=== PATIENT | male | born 1955 | race American Indian/Alaskan Native ===

== ENCOUNTER 2017-06-30 12:38 | Emergency (ER) | payer MEDICARE, OTHER ==
[~2017-06-30] VITALS: Ht 182.9 cm; Wt 120.0 kg
[~2017-06-30 12:38] MED LIST: ATEN-102 PO; DIAZ10TA PO; EZET10 PO; FLUO40CA PO; GABA300C3 PO; HYZA100T2 PO; LEVO75TA3 PO; MORP1INJ45 PO
[2017-06-30 12:40] VITALS: BP 104/71; PULSE 70; RESP 13; TEMP 99.2; O2SAT 96
[2017-06-30] MEDS ORDERED: KETOROLAC TROMETHAMINE 60 MG/2 ML (IM) VIAL IM ONE (14:45)
--- NOTE | 2017-06-30 15:17 | PD ---
HPI Chief Complaint: Fall Time Seen by Provider: 14:35 Travel History International Travel<30 days: No Contact w/Intl Traveler<30days: No Traveled to known affect area: No History of Present Illness HPI Patient is a 62 year old male who comes in after he tripped and fell last night. He says he fell directly onto his knees. He complains of pain to his knees, his left ankle, wrists, and back. He denies hitting his head or any LOC. He takes 30mg Morphine three times a day at home for chronic pain. PFS Past Medical History High Cholesterol: Yes Hypertension: Yes Medical other: Yes (chronic pain ) Tetanus Vaccination: Unknown Past Surgical History Other Surgery: Yes (divated septum, right hand ) Social History Alcohol Use: Yes (occ) Tobacco Use: No Substance Use: No Allergies-Medications (Allergen,Severity, Reaction): Coded Allergies: No Known Allergies (Unverified , 06/30/17) Reported Meds & Prescriptions Reported Meds & Active Scripts Active Reported Gabapentin Unknown Strength Cap Unknown Dose PO BID Fluoxetine (Fluoxetine HCl) 40 Mg Cap 40 Mg PO DAILY Morphine Sulfate Ir 15 mg (Morphine Sulfate) 15 Mg Tab 15 Mg PO Q8HR PRN Diazepam 10 mg (Diazepam) 10 Mg Tab 1 Tab PO DAILY Levothyroxine 75 mcg (Levothyroxine Sodium) 75 Mcg Tab 75 Mcg PO DAILY Hyzaar 100-12.5 (Losartan Potassium-Hct 100-12.5) 100 Mg/12.5 Mg Tab 1 Tab PO DAILY Atenolol 50 Mg Tab 50 Mg PO DAILY Zetia (Ezetimibe) 10 Mg Tab 10 Mg PO DAILY Review of Systems Except as stated in HPI: all other systems reviewed are Neg General / Constitutional: No: Fever, Chills Eyes: No: Blurred Vision HENT: No: Headaches, Lightheadedness Cardiovascular: No: Chest Pain or Discomfort, Palpitations Respiratory: No: Shortness of Breath Gastrointestinal: No: Nausea, Vomiting Musculoskeletal: Positive: Edema, Pain Skin: Positive Other (abrasion), No Rash, No Change in Pigmentation Neurologic: No: Weakness, Dizziness, Syncope Physical Exam Narrative GENERAL: Awake and alert, in no acute distress. SKIN: Focused skin assessment warm/dry. Abrasion to distal portion of the left patella. HEAD: Atraumatic. Normocephalic. EYES: Pupils equal and round. No scleral icterus. EOMI. ENT: Mucous membranes pink and moist. NECK: Trachea midline. No JVD. No cervical spine tenderness. CARDIOVASCULAR: Regular rate and rhythm. No murmur appreciated. RESPIRATORY: No accessory muscle use. Clear to auscultation. Breath sounds equal bilaterally. GASTROINTESTINAL: Abdomen soft, non-tender, nondistended. MUSCULOSKELETAL: No obvious deformities. No clubbing. No cyanosis. Pain with flexion of both knees. Tender to palpation of the thoracic spine. Edema of the left ankle. Pulses intact. NEUROLOGICAL: Awake and alert. No obvious cranial nerve deficits. Motor grossly within normal limits. Normal speech. PSYCHIATRIC: Appropriate mood and affect; insight and judgment normal. Data Data Last Documented VS Vital Signs Date Time Temp Pulse Resp B/P (MAP) Pulse Ox O2 Delivery O2 Flow Rate FiO2 06/30/17 14:37 16 98 Room Air 06/30/17 12:40 99.2 70 104/71 (82) Orders Orders Knee, Complete (4vws) (06/30/17 ) Knee, Complete (4vws) (06/30/17 ) Ankle, Complete ([id number]) (06/30/17 ) Spine, Thoracic-Ap/Lat/Sw(3vw) (06/30/17 ) Spine, Lumbar Comp W/Obliq (06/30/17 ) Ketorolac Inj (Toradol Inj) (06/30/17 14:45) Wrist, Complete ([id number]) (06/30/17 ) Wrist, Complete ([id number]) (06/30/17 ) Pelvis, Ap Only (Routine) (06/30/17 ) MDM Medical Decision Making Medical Screen Exam Complete: Yes Emergency Medical Condition: Yes Medical Record Reviewed: Yes Differential Diagnosis knee fracture vs ankle fracture vs muscle strain Narrative Course Patient is a 62 year old male who comes in complaining of pain after he tripped and fell yesterday. Exam shows pain with flexion of both knees. Given Toradol. Last 24 hours Impressions Wrist X-Ray 06/30/17 0000 Signed Impressions: Service Date/Time: Friday, June 30, 2017 15:33 - CONCLUSION: Chronic worsening arthritic changes and scapholunate separation. No definite fracture Michel Champion MD Wrist X-Ray 06/30/17 0000 Signed Impressions: Service Date/Time: Friday, June 30, 2017 15:29 - CONCLUSION: No acute disease. Anderson Sheppard MD Thoracic Spine X-Ray 06/30/17 Signed Impressions: Service Date/Time: Friday, June 30, 2017 15:41 - CONCLUSION: Multilevel degenerative changes. Anderson Sheppard MD Pelvis X-Ray 06/30/17 Signed Impressions: Service Date/Time: Friday, June 30, 2017 15:39 - CONCLUSION: No acute disease. Anderson Sheppard MD Lumbar Spine X-Ray 06/30/17 Signed Impressions: Service Date/Time: Friday, June 30, 2017 15:40 - CONCLUSION: Degenerative changes without fracture or listhesis. Anderson Sheppard MD Knee X-Ray 06/30/17 Signed Impressions: Service Date/Time: Friday, June 30, 2017 15:09 - CONCLUSION: Degenerative changes and joint effusion. No definite fracture Michel Champion MD Knee X-Ray 06/30/17 Signed Impressions: Service Date/Time: Friday, June 30, 2017 15:09 - CONCLUSION: Degenerative changes. No acute bony injury Michel Champion MD Ankle X-Ray 06/30/17 Signed Impressions: Service Date/Time: Friday, June 30, 2017 15:07 - CONCLUSION: No acute bony injury Michel Champion MD Patient advised to stretch and move often to avoid stiffness. He has pain medicine at home to take if needed. He is advised to be cautious with the amount of Morphine he takes. Advised to follow up with his doctors. Advised to return to the ED as needed for any worsening symptoms. Diagnosis Primary Impression: Musculoskeletal pain Patient Instructions: General Instructions, Musculoskeletal Pain (ED) Additional Instructions: Make sure you stretch and move often. Follow up with your doctors. Return to the ED as needed for any worsening symptoms. Disposition: 01 DISCHARGE HOME Condition: Stable Alisha Zhu MD Jun 30, 2017 15:17
--- NOTE | 2017-06-30 16:06 | RADRPT ---
EXAM DATE/TIME: 06/30/2017 15:33 [facility] COMPARISON: WRIST RIGHT LIMITED(AP & LAT), February 01, 2016, 11:43. INDICATIONS : Pain from fall forward on outstretched hands. MEDICAL HISTORY : None. SURGICAL HISTORY : None. ENCOUNTER: Initial ACUITY: 1 day PAIN SCORE: 5/10 LOCATION: Right wrist. FINDINGS: There is severe arthritic change in the wrist with complete or near-complete joint space loss in the radiocarpal joint. Is prominent widening of the scapholunate interval which appears worse than on pre vious exam. There is no definite evidence of displaced fracture. CONCLUSION: Chronic worsening arthritic changes and scapholunate separation. No definite fracture Michel Champion MD on June 30, 2017 at 16:03 Board Certified Radiologist. This report was verified electronically.
--- NOTE | 2017-06-30 16:07 | RADRPT ---
EXAM DATE/TIME: 06/30/2017 15:07 [facility] COMPARISON: No previous studies available for comparison. INDICATIONS : Pain from fall forward on outstretched hands. MEDICAL HISTORY : None. SURGICAL HISTORY : None. ENCOUNTER: Initial ACUITY: 1 day PAIN SCORE: 5/10 LOCATION: Left wrist. FINDINGS: There is no evidence of fracture or dislocation. There are arthritic changes in the ankle and hindfoo t. Prominent plantar heel spur and some ossification at the Achilles tendon insertion. CONCLUSION: No acute bony injury Michel Champion MD on June 30, 2017 at 16:05 Board Certified Radiologist. This report was verified electronically.
--- NOTE | 2017-06-30 16:08 | RADRPT ---
EXAM DATE/TIME: 06/30/2017 15:09 [facility] COMPARISON: No previous studies available for comparison. INDICATIONS : Pain from fall forward on outstretched hands. MEDICAL HISTORY : None. SURGICAL HISTORY : None. ENCOUNTER: Initial ACUITY: 1 day PAIN SCORE: 5/10 LOCATION: Left knee. FINDINGS: There is severe arthritic change with severe medial compartment joint space narrowing and tricompartm ental osteophyte formation. There is no definite evidence of joint effusion or fracture. Mineralizati on is normal. CONCLUSION: Degenerative changes. No acute bony injury Michel Champion MD on June 30, 2017 at 16:06 Board Certified Radiologist. This report was verified electronically.
--- NOTE | 2017-06-30 16:09 | RADRPT ---
EXAM DATE/TIME: 06/30/2017 15:09 [facility] COMPARISON: No previous studies available for comparison. INDICATIONS : Pain from fall forward on outstretched hands. MEDICAL HISTORY : None. SURGICAL HISTORY : None. ENCOUNTER: Initial ACUITY: 1 day PAIN SCORE: 5/10 LOCATION: Left knee. FINDINGS: There is a moderate suprapatellar effusion. No definite fracture or dislocation. Moderate arthritic c hanges present with medial compartment joint space narrowing and tricompartmental osteophytes. CONCLUSION: Degenerative changes and joint effusion. No definite fracture Michel Champion MD on June 30, 2017 at 16:07 Board Certified Radiologist. This report was verified electronically.
--- NOTE | 2017-06-30 16:11 | RADRPT ---
EXAM DATE/TIME: 06/30/2017 15:39 [facility] COMPARISON: No previous studies available for comparison. INDICATIONS : Pain from fall forward on outstretched hands. MEDICAL HISTORY : None. SURGICAL HISTORY : None. ENCOUNTER: Initial ACUITY: 1 day PAIN SCORE: 5/10 LOCATION: Bilateral pelvis FINDINGS: A single frontal view of the pelvis demonstrates no evidence of fracture. The bony pelvic ring is in tact. Bony mineralization is normal. The soft tissues are intact. CONCLUSION: No acute disease. Anderson Sheppard MD on June 30, 2017 at 16:09 Board Certified Radiologist. This report was verified electronically.
--- NOTE | 2017-06-30 16:11 | RADRPT ---
EXAM DATE/TIME: 06/30/2017 15:40 [facility] COMPARISON: No previous studies available for comparison. INDICATIONS : Pain from fall forward on outstretched hands. MEDICAL HISTORY : None. SURGICAL HISTORY : None. ENCOUNTER: Initial ACUITY: 1 day PAIN SCORE: 5/10 LOCATION: Lower back. FINDINGS: Normal alignment. Severe disc space narrowing L4-5 and L5-S1 with vacuum disc phenomenon, and endplat e sclerosis. Prominent multilevel osteophytosis. Schmorl node at the inferior endplate of L1. Moderat e facet hypertrophic changes. No compression deformities. Aortic and iliac artery calcifications. CONCLUSION: Degenerative changes without fracture or listhesis. Anderson Sheppard MD on June 30, 2017 at 16:10 Board Certified Radiologist. This report was verified electronically.
--- NOTE | 2017-06-30 16:12 | RADRPT ---
EXAM DATE/TIME: 06/30/2017 15:29 [facility] COMPARISON: No previous studies available for comparison. INDICATIONS : Pain from fall forward on outstretched hands. MEDICAL HISTORY : None. SURGICAL HISTORY : None. ENCOUNTER: Initial ACUITY: 1 day PAIN SCORE: 5/10 LOCATION: Left wrist. FINDINGS: Three view examination of the left wrist demonstrates no soft tissue swelling, dislocation, or fractu re. The carpal bones are in normal alignment. The joint spaces are maintained. Bony mineralization is normal. CONCLUSION: No acute disease. Anderson Sheppard MD on June 30, 2017 at 16:11 Board Certified Radiologist. This report was verified electronically.
--- NOTE | 2017-06-30 16:12 | RADRPT ---
EXAM DATE/TIME: 06/30/2017 15:41 [facility] COMPARISON: No previous studies available for comparison. INDICATIONS : Pain from fall forward on outstretched hands. MEDICAL HISTORY : None. SURGICAL HISTORY : None. ENCOUNTER: Initial ACUITY: 1 day PAIN SCORE: 5/10 LOCATION: Upper back. FINDINGS: There is normal alignment of the thoracic vertebral bodies. Vertebral body height is maintained. No evidence of fracture or subluxation. Pedicles are intact at all levels. The paravertebral reflecti ons are not thickened. Multilevel osteophyte formation is seen without fracture or listhesis. CONCLUSION: Multilevel degenerative changes. Anderson Sheppard MD on June 30, 2017 at 16:10 Board Certified Radiologist. This report was verified electronically.
== END 2017-06-30 16:56 | disposition home or self-care (01) ==
LOC: NEPD 12:38
DX: M79.1 Myalgia (principal); W01.0XXA Fall on same level from slipping, tripping and stumbling without subsequent striking against object, initial encounter
CPT/HCPCS: 72072; 72110; 72170; 73110; 73564; 73610; 96372; 99284; J1885

== ENCOUNTER 2018-08-19 08:03 | Inpatient (IN) ==
[2018-08-19] MEDS ORDERED: Chlorhexidine Gluconate 2% 1 Pack (2 Cloths) TOPICAL ONE (08:33)
[2018-08-19] MEDS ORDERED: Metoprolol Tartrate 25 MG Tablet PO ONE (08:33)
[2018-08-19] MEDS ORDERED: Chlorhexidine 4% Topical 120 APPLIC/120 ML Bottle TOPICAL SCH (08:45)
[2018-08-19] MEDS ORDERED: ceFAZolin 2 GM Premix Inj 2 GM/50 ML PIGGYBACK IV.SIG SCH (09:00)
[2018-08-19] MEDS ORDERED: Sodium Chlor 0.9% Inj 60 ML, Bupivacaine Liposo PF 1.3% Inj 20 ML, Bupivacaine/Epi PF 0... P-ARTICULR SCH ×3 (09:00)
[2018-08-19] MEDS ORDERED: Vancomycin Inj 1,000 MG in Sodium Chlor 0.9% Inj 250 ML IV.SIG SCH (09:00)
[2018-08-19] MEDS ORDERED: Sodium Chlor 0.9% Inj 500 ML IV.SIG SCH (09:00)
[2018-08-19] MEDS ORDERED: Sugammadex Inj 200 MG/2 ML Vial IV.PUSH ONE (13:05)
[2018-08-19] MEDS ORDERED: Morphine Inj 4 MG/ML Vial IV.PUSH PRN (14:13)
[2018-08-19] MEDS ORDERED: Post-op Orders (for Pharmacy) OTHER STA (14:13)
[2018-08-19] MEDS ORDERED: Bisacodyl 10 MG Supp RECTAL PRN (14:13)
--- NOTE | 2018-08-19 14:19 | P.OP ---
- Preoperative Diagnosis (1) Osteoarthritis of right knee - Postoperative Diagnosis (1) Osteoarthritis of right knee Date of procedure: 08/19/18 Procedure: Right total knee arthroplasty Anesthesia: GETA Surgeon: Cy Mack MD Beef Boner: Amanda Mccauley PA-C Operation and Findings: EBL: 100 cc INDICATION: This patient presents with long-standing arthritis of the knee. Attachment record documents conservative measures. The patient now presents for surgical treatment. NOTE: Amanda Mccauley PA-C was present for the entire surgical procedure as my training and development assistant. In my medical opinion her skill and care was necessary for proper management of this patient. TOURNIQUET TIME: 85 minutes COMPANY: [employer] FEMUR: Size 10, posterior stabilized, cemented TIBIA: Size 9, fixed-bearing, cemented PATELLA: 38 mm POLYETHYLENE INSERT: 11 mm, posterior stabilized PROCEDURE: This patient was brought the operating room and anesthetized in the supine position. The patient was positioned supine on the table. The tourniquet was placed about the thigh, and the leg was scrubbed with alcohol followed by Hibiclens followed by ChloraPrep and draped sterilely. A timeout was done, and antibiotics were given. After exsanguination the tourniquet was inflated to 250 mmHg. An anterior incision was made and a median parapatellar arthrotomy was performed. The patella was released laterally and subluxed allowing freehand cut of the patella which was then sized. A metal cap was placed over the exposed patellar surface for protection. A airplane pilot crop dusting hole was placed in the distal femur allowing a 6 valgus cut removing 11 mm from the distal femur. Anterior posterior and chamfer cuts were made. Because of the patient's very large size, we downsized to a size 10, the largest size. We translated the femoral component anteriorly 1.5 mm. The distal femur was resected at 11 instead of 9, allowing the joint line to be translated by 2 mm cephalad. The posterior stabilize osteotomy was made. The attention was directed to the tibia. Retractors were positioned. The external alignment guide was used allowing the lateral tibia to be used as referencing guide and cut utilizing an oscillating saw taking care to avoid any injury to the surrounding soft tissues. This was sized properly. Trial reduction showed that the insert fit nicely. The patient had range of motion extension 0 flexion 120. A medial release was not necessary. The bony surfaces prepared. On the back table 2 packets of methylmethacrylate were mixed. The components were cemented. Excess cement was removed. The tourniquet let down and hemostasis was controlled. The final plastic insert was inserted. Range of motion was the same as previously noted. The arthrotomy was repaired with interrupted #1 Vicryl suture, subcutaneous tissue 2-0 Vicryl suture and skin with metallic cal A sterile dressing was applied. Sponge counts, needle counts and instrument counts were all correct. The patient tolerated procedure well and was taken to recovery in satisfactory condition. FINDINGS: The patient had severe osteoarthritis especially of the medial compartment and retropatellar region. Bony erosion was seen in the medial compartment. The final alignment and stability appear to be excellent. There is no complication that was appreciated.
--- NOTE | 2018-08-19 14:21 | P.DCO ---
- Physical Therapy Physical Therapy: Gait training (3 times per week for 2 weeks) Knee: Total knee, Protocol: Right, Full weight bearing Canvas Knee Splint: Other (At nighttime when in bed for 4 weeks) Right Lower Extremity Weight Bearing: Weight bearing as tolerated - Nursing RN days per week: 3 x week(s): 1 Dressing changes: Do not change dressing (Unless saturated. If saturated, one- time change with coverderm or [place]) - Certification Need for Home Health services: I have seen patient Anand Rosen on 08/19/18. My clinical findings support the need for the requested home health care services because: Homebound Certification: I certify that my clinical findings support that this patient is homebound because:
[2018-08-19] MEDS ORDERED: fentaNYL Citrate Inj 100 MCG/2 ML Ampul ONE (14:53)
[2018-08-19] MEDS ORDERED: *HYDROmorphone PF Inj 1 MG/ML Ampul PERIprocedural Use ONLY ONE (14:56)
--- NOTE | 2018-08-19 16:10 | XR ---
EXAM DATE: 08/19/2018 4:02 PM EST AGE/SEX: 63 years / Male INDICATIONS: Post op, right knee surgery. CLINICAL DATA: This is the patient's initial encounter. Patient reports that signs and symptoms have been present for 1 day and indicates a pain score of 0/10. MEDICAL/SURGICAL HISTORY: None. None. COMPARISON: [facility] [place], KNEE RIGHT COMPLETE (4VWS), 06/30/2017. . FINDINGS: Total knee arthroplasty is present. Hardware appears intact. Alignment is anatomic. Skin cal are present ventrally. CONCLUSION: Satisfactory appearance post right TKA Electronically signed by: Michel Champion MD 08/19/2018 4:09 PM EST
[2018-08-19] MEDS: ceFAZolin 1 GM Premix Inj 1 GM/50 ML FROZ.PIGGY IV.SIG SCH ×2 (17:49→22:30)
[2018-08-19] MEDS: Morphine Sulfate 30 MG SR Tablet PO SCH ×2 (17:50→22:27)
[2018-08-19] MEDS: Gabapentin 300 MG Capsule PO SCH (17:50)
[2018-08-19] MEDS: Pilocarpine HCl 5 MG Tablet PO SCH (17:59)
[2018-08-19] MEDS ORDERED: Montelukast 10 MG Tablet PO SCH (18:00)
[2018-08-19] MEDS: Senna/Docusate Sodium 8.6/50 MG Tablet PO SCH (21:18)
[2018-08-19] MEDS: Multivitamin/Minerals Therapeutic Tablet PO SCH (22:29)
[2018-08-20] MEDS ORDERED: Levothyroxine 75 MCG Tablet PO SCH (06:00)
[2018-08-20] MEDS: Morphine Sulfate 30 MG SR Tablet PO SCH ×2 (06:34→15:20)
[2018-08-20] MEDS: ceFAZolin 1 GM Premix Inj 1 GM/50 ML FROZ.PIGGY IV.SIG SCH (06:34)
[2018-08-20 06:58] LABS: Hematocrit 34.7 % (39.0-51.0); Hemoglobin 11.7 gm/dL (13.0-17.0)
[2018-08-20] MEDS ORDERED: Ezetimibe 10 MG Tablet PO SCH (09:00)
[2018-08-20] MEDS ORDERED: amLODIPine 5 MG Tablet PO SCH (09:00)
[2018-08-20] MEDS ORDERED: FLUoxetine 20 MG Capsule PO SCH (09:00)
[2018-08-20] MEDS ORDERED: Atenolol 50 MG Tablet PO SCH (09:00)
[2018-08-20] MEDS ORDERED: hydroCHLOROthiazide 25 MG Tablet PO SCH (09:00)
[2018-08-20] MEDS: Gabapentin 300 MG Capsule PO SCH ×2 (09:23→12:10)
[2018-08-20] MEDS: Pilocarpine HCl 5 MG Tablet PO SCH ×2 (09:23→12:11)
[2018-08-20] MEDS: Multivitamin/Minerals Therapeutic Tablet PO SCH (09:23)
[2018-08-20] MEDS: Senna/Docusate Sodium 8.6/50 MG Tablet PO SCH (09:24)
--- NOTE | 2018-08-20 16:57 | P.DS ---
Date of admission: 08/19/18 08:03 Primary care physician: Ruth Ojeda DO Attending physician on discharge: yC Mack Anticipated date of discharge: 08/21/18 Brief History from admission: Mr. Rosen has a multiyear history of bilateral knee pain, right greater than left. He underwent arthroscopic knee surgery on the left in the with moderate postoperative success. He pursued therapy, medications, topical analgesics and use of a gait aid with limited success. Surgical treatment was eventually recommended in the form of right total knee arthroplasty. The patient agreed and now presents for the above. DS: Diagnosis - Discharge Diagnosis (1) Osteoarthritis of right knee Status: Acute DS: Medications - Discharge Medications Prescriptions: aspirin 81 mg PO BID 30 Days #60 tab oxycodone-acetaminophen 1 tab PO Q4H PRN #42 tab PRN Reason: Acute Pain DS: Summary Hospital Course: Surgical treatment was performed on the day of admission without complication. He recovered well in PACU and was transferred to the orthopaedic floor. Pain was controlled with IV and oral medications. He was compliant with physical therapy and all total knee precautions. After 2 days he was found to be stable and discharged home with home health care. He was instructed to continue his therapy, to ice the operative limb and to pursue a high fiber diet for 5-7 days. He was given a prescription for Oxycodone but educated to return to his pain management physician for further pain control and instructed to take ASA 81mg BID for 30 days. - Time Spent with Patient Total time spent providing and/or coordinating discharge services: Greater than 30 minutes - Quality: VTE Deep Vein Thrombosis/Pulmonary Embolism Present on Admission: No Exam Vital signs: Vital Signs 08/19/18 17:29 08/19/18 19:50 08/20/18 00:55 Temperature 97.1 F L 98.6 F 97.7 F Pulse Rate 70 78 83 Respiratory Rate 18 16 16 Blood Pressure 132/65 120/75 120/56 L Pulse Oximetry 94 L 95 93 L 08/20/18 04:54 08/20/18 08:00 08/20/18 12:00 Temperature 98.2 F 97 F L 98.8 F Pulse Rate 74 76 87 Respiratory Rate 18 18 18 Blood Pressure 126/58 L 137/63 140/60 Pulse Oximetry 93 L 96 92 L Intake & Output 08/19/18 08/20/18 08/20/18 18:59 06:59 18:59 Intake Total 1000 / 1000 1240 / 1240 50 / 50 Output Total 100 / 100 Balance 900 / 900 1240 / 1240 50 / 50 Weight 130.6 kg Intake: IV 1000 / 1000 50 / 50 LR 1000 mL Inj 1,000 ML @ 80 900 / 900 mls/hr IV.CONT .[id number] [facility] Rx# :[id number] Ancef 1 GM Premix Inj 1 gm In 100 / 100 50 / 50 50 ml @ 100 mls/hr IV.SIG Q6H [facility] Rx#:[id number] Oral 240 / 240 Anesthesia Amount 1000 / 1000 Output: Estimated Blood Loss 100 / 100 Other: # Voids 1 Date of Last Bowel Movement 08/18/18 # Bowel Movements 0 Weight On Admission 130.6 kg Results Procedures completed during hospitalization: Right total knee arthroplasty Labs on day of discharge: Labs from last 24 hours 08/20/18 05:00 Hgb 11.7 L Hct 34.7 L - Impressions ITS Impressions Knee X-Ray 08/19/18 14:13 CONCLUSION: Satisfactory appearance post right TKA Discharge Plan - Discharge Disposition Patient Disposition: W/Home Health Service - Discharge Condition Condition: Good - Discharge Order Discharge Orders: Discharge Order (Routine); Ordered 08/20/18 Ordered By: Alisha Alvarado - Discharge Details Anticipated Discharge Date: 08/20/18 - Physicians Team Primary Care Provider: Ruth Ojeda Attending Provider: Cy Mack Other Providers: [facility] - Rxs /Orders / Referrals /Forms Prescriptions: New aspirin 81 mg Tablet,Chewable 81 mg PO BID 30 Days Qty: 60 RF: 0 oxycodone-acetaminophen 5-325 mg Tablet 1 tab PO Q4H PRN (Reason: Acute Pain) Qty: 42 RF: 0 Continue amlodipine 5 mg Tablet 5 mg PO DAILY atenolol 50 mg Tablet 50 mg PO DAILY atorvastatin 10 mg Tablet 10 mg PO DAILY cyclobenzaprine 10 mg Tablet 10 mg PO TID PRN (Reason: Spasms) diazepam 10 mg Tablet 10 mg PO HS ezetimibe [Zetia] 10 mg Tablet 10 mg PO DAILY fluoxetine 20 mg Capsule 20 mg PO DAILY gabapentin 300 mg Capsule 300 mg PO TID levothyroxine 75 mcg Capsule 75 mcg PO DAILY losartan-hydrochlorothiazide 100-12.5 mg Tablet 1 tab PO DAILY montelukast 10 mg Tablet 10 mg PO QPM morphine 30 mg Tablet Extended Release 30 mg PO Q8H pilocarpine HCl 5 mg Tablet 5 mg PO TID Ambulatory Orders / Order Sets / DME: Adjustable Commode 3-in-1 (1 each) (Routine) Location: Determined by Patient Ordered By: Cy Mack Walker With Front Wheels (1 each) (Routine) Location: Determined by Patient Ordered By: Cy Mack Referrals: Ruth Ojeda DO [Primary Care Provider] - See Instructions - Discharge Instructions Patient Printed Instructions: Oxycodone/Acetaminophen (By mouth), Laxative, Stool Softeners (By mouth), How to Choose and Use a Walker (GEN), How to Use a Bedside Commode (GEN), Precautions after Total Joint Replacement Surgery (DC), Ice Pack Application (DC), Fall Prevention (DC), DANIEL Hose (DC), Knee Immobilizer (ED), Knee Replacement (DC) Additional Instructions: PRESCRIPTIONS PROVIDED AT TIME OF DISCHARGE. CONTINUE TO USE STOOL SOFTENERS WHILE TAKING NARCOTICS. DO NOT CHANGE SURGICAL DRESSING. CONTINUE TO WEAR KNEE IMMOBILIZER AT NIGHT WHILE IN BED. REPORT ANY REDNESS, DRAINAGE, OR SWELLING AT THE SURGICAL SITE. - Post Discharge Care Plan Care Plan Goals: Discharge Care Plan Goals for RIGHT Total Knee Replacement You have undergone knee replacement surgery. Your doctor replaced your painful joint with an artificial joint to relieve pain and restore movement. Here are some goals to help you heal well. Directions to Meet your Goals: 1. Activity & Exercises: * Take pain medicine as directed by your doctor. * Sit in chairs with arms. The arms make it easier for you to stand up or sit down. * Dont sit for more than 30 to 45 minutes at one time. * Nap if you are tired, but dont stay in bed all day. * Sleep with a pillow under your ankle, not your knee. Be sure to change the position of your leg during the night. * Wear the support stockings you were given in the hospital as directed by your surgeon. 2. Prevent Falls/Injury: The elizalde to successful recovery is movement with walking and exercising your knee as directed by your doctor. * Arrange your household to keep the items you need handy. Keep everything else out of the way. * Remove items that may cause you to fall, such as throw rugs and electrical cords. * Use nonslip bath mats, grab bars, an elevated toilet seat, and a shower chair in your bathroom * Sit on a shower stool or chair when you shower to keep from falling. * Until your balance, flexibility, and strength improve, use a cane, crutches, a walker, handrails, or someone to help you. * Keep your hands free by using a backpack, indy pack, apron, or pockets to carry things * Walk up and down stairs with support. Try one step at a time. Use the railing if possible. * Dont drive until your doctor says its OK. * Dont drive while you are taking opioid pain medicine. 3. Precautions: * Prevent infection. Any infection will need to be treated immediately. Call your doctor right away if you think you might have an infection. * Tell your dentist that you have an artificial joint and take antibiotics as prescribed before any dental work. * Tell all your healthcare providers about your artificial joint before any medical procedure. * Maintain a healthy weight. Get help to lose any extra pounds. Added body weight puts stress on the knee. * Your medications may include blood-thinning medicine to prevent blood clots or antibiotics to prevent infection-prevent any falls or cuts 4. Incision Care: * Prevent infection by washing your hands often. If an infection occurs, it will need to be treated right away. * Call your doctor right away if you think you may have an infection. Symptoms include a fever or an incision that leaks white, green, or yellow fluid. * Don't soak your incision in water until your doctor says its OK. This means no hot tubs, bathtubs, or swimming pools. * Follow your doctor's instructions for changing the dressing. You can begin to shower postop day 5 BUT the dressing must be kept sealed and dry. If it gets wet you must begin daily dressing changes. * Dont rub the incision, or apply creams or lotions to it. * If you notice any redness or drainage around the bandage site, contact your surgeon's office immediately. 5. Follow-Up: Do Not miss your follow-up appointment. Keep up with all your appointments and yearly check ups When to call your doctor: Call your doctor right away if you have: Fever of 100.4F (38C) or higher, or as directed by your doctor Shaking chills Stiffness, or inability to move the knee Increased swelling in your leg Increased redness, tenderness, or swelling in or around the knee incision Drainage from the knee incision Increased knee pain Call 911: Call 911 right away if you have: Chest pain Shortness of breath Any pain or tenderness in your calf
--- NOTE | 2018-08-20 16:57 | P.PNOP ---
Subjective Interval history: He states he had moderate knee pain. His low back is uncomfortable in the bed. He denies any events overnight. No new CP or SOB. Physical Exam Vital signs: Vital Signs 08/19/18 17:29 08/19/18 19:50 08/20/18 00:55 Temperature 97.1 F L 98.6 F 97.7 F Pulse Rate 70 78 83 Respiratory Rate 18 16 16 Blood Pressure 132/65 120/75 120/56 L Pulse Oximetry 94 L 95 93 L 08/20/18 04:54 08/20/18 08:00 08/20/18 12:00 Temperature 98.2 F 97 F L 98.8 F Pulse Rate 74 76 87 Respiratory Rate 18 18 18 Blood Pressure 126/58 L 137/63 140/60 Pulse Oximetry 93 L 96 92 L Intake & Output 08/19/18 08/20/18 08/20/18 18:59 06:59 18:59 Intake Total 1000 / 1000 1240 / 1240 50 / 50 Output Total 100 / 100 Balance 900 / 900 1240 / 1240 50 / 50 Weight 130.6 kg Intake: IV 1000 / 1000 50 / 50 LR 1000 mL Inj 1,000 ML @ 80 900 / 900 mls/hr IV.CONT .[id number] [facility] Rx# :[id number] Ancef 1 GM Premix Inj 1 gm In 100 / 100 50 / 50 50 ml @ 100 mls/hr IV.SIG Q6H [facility] Rx#:[id number] Oral 240 / 240 Anesthesia Amount 1000 / 1000 Output: Estimated Blood Loss 100 / 100 Other: # Voids 1 Date of Last Bowel Movement 08/18/18 # Bowel Movements 0 Weight On Admission 130.6 kg Narrative: Laying in bed Wearing his CPAP No acute distress RLE CKS removed, dressing intact, minimal SS drainage, Mild warmth, no erythema +motor at distal, +sens, +nvi Neg homans - Constitutional no acute distress Results - Labs CBC & Chem 7: 08/20/18 05:00 Laboratory Results - last 24 hr 08/20/18 05:00 Hgb 11.7 L Hct 34.7 L - Procedures Right total knee arthroplasty Assessment and Plan - Ortho Post Op Day # 1 - Assessment and Plan pod#1 s/p R TKA Pain moderately controlled. No events last night. Ortho stable. He may need to stay one more night. He is worried about having assistance at home. PO pain meds as needed. He is on chronic pain management. PT - WBAT RLE. Progressive ROM. ASA 81mg Hold dressing changes unless saturated. CKS at night for 3 weeks. D/C planning, likely [facility] tomorrow.
== END 2018-08-20 18:38 | disposition home health service (06) ==
LOC: HSDI 08:03 → N06 17:04
PROVIDERS: ADMIT Orthopaedic Surgery Orthopaedic Surgery of the Spine; ATTEND Orthopaedic Surgery Orthopaedic Surgery of the Spine